=== PATIENT | female | born 1950 | race Caucasian/White ===

== ENCOUNTER → 2016-12-07 09:18 | Outpatient (CLI) | payer MEDICARE, OTHER | END | disposition home or self-care (01) | LOC: D.CT 09:18 | DX: R10.9 Unspecified abdominal pain (principal) ==

== ENCOUNTER → 2017-07-13 21:44 | Outpatient (CLI) | payer MEDICARE, OTHER | END | disposition home or self-care (01) | LOC: D.MAMMO 06-29 11:00 | DX: N64.4 Mastodynia (principal) ==